=== PATIENT | female | born 1945 | race Caucasian/White ===

== ENCOUNTER 2017-07-14 17:37 | Emergency (ER) | payer MEDICARE, OTHER ==
[~2017-07-14] VITALS: Ht 174 cm; Wt 65.1 kg
[2017-07-14 17:45] VITALS: BP 135/63; PULSE 92; RESP 16; TEMP 97.7; O2SAT 100
[2017-07-14] MEDS ORDERED: XANA1TAB2 PO (18:19)
[2017-07-14] MEDS ORDERED: METH2.5T PO (18:19)
[2017-07-14] MEDS ORDERED: TRAM50TA PO (18:19)
[2017-07-14] MEDS ORDERED: ATOR20TA15 PO (18:19)
[2017-07-14] MEDS ORDERED: ZOLO100T PO (18:19)
[2017-07-14] MEDS ORDERED: AMLO10TA2 PO (18:19)
--- NOTE | 2017-07-14 18:28 | PD ---
HPI Chief Complaint: Injury Time Seen by Provider: 18:06 Travel History International Travel<30 days: No Contact w/Intl Traveler<30days: No Traveled to known affect area: No History of Present Illness HPI Patient 71-year-old female presents emergency department for evaluation of left wrist pain after a slip and fall on the wet pavement today, patient denies any other injury states she had a fall on outstretched hand. Denies any head injury neck injury back injury chest injury abdomen and her other joint injury. Denies a history of loss of consciousness. Feels well otherwise, took 2 tramadol prior to arrival and her pain is better. PFSH Past Medical History Asthma: Yes (osteo) Depression: Yes Cardiovascular Problems: Yes (htn, high chol on meds) High Cholesterol: Yes Diminished Hearing: No Tetanus Vaccination: > 5 Years Influenza Vaccination: No ?: Not Past Surgical History Appendectomy: Yes Eye Surgery: Yes (bilat cataracts ) Social History Alcohol Use: No Tobacco Use: Yes (7-8 cigs ) Substance Use: No Allergies-Medications (Allergen,Severity, Reaction): Coded Allergies: acetaminophen (Verified Allergy, Mild, rash, 07/14/17) Reported Meds & Prescriptions Reported Meds & Active Scripts Active Reported Tramadol (Tramadol HCl) 50 Mg Tab 50 Mg PO TID PRN Xanax (Alprazolam) 1 Mg Tab 1 Mg PO HS PRN Methotrexate 2.5 Mg Tab 2.5 Mg PO BID Zoloft (Sertraline HCl) 100 Mg Tab 100 Mg PO DAILY Atorvastatin (Atorvastatin Calcium) 20 Mg Tab 20 Mg PO HS Amlodipine (Amlodipine Besylate) 10 Mg Tab 10 Mg PO DAILY Review of Systems Except as stated in HPI: all other systems reviewed are Neg Physical Exam Narrative GENERAL: Well-nourished, well-developed patient. SKIN: Focused skin assessment warm/dry. HEAD: Normocephalic. EYES: No scleral icterus. No injection or drainage. NECK: Supple, trachea midline. No JVD or lymphadenopathy. CARDIOVASCULAR: Regular rate and rhythm without murmurs, gallops, or rubs. RESPIRATORY: Breath sounds equal bilaterally. No accessory muscle use. GASTROINTESTINAL: Abdomen soft, non-tender, nondistended. MUSCULOSKELETAL: No cyanosis, or edema. No midline CT or L-spine tenderness, no tenderness at the left elbow, there is obvious deformity of the left wrist with volar displacement. Pulses motor and sensory intact distally in all 4 extremities, cap refill brisk in all 5 digits, all tendon motions are intact and the MCP PIP and DIP joints, remainder the extremities are atraumatic, compartments are soft BACK: Nontender without obvious deformity. No CVA tenderness. Data Data Last Documented VS Vital Signs Date Time Temp Pulse Resp B/P (MAP) Pulse Ox O2 Delivery O2 Flow Rate FiO2 07/14/17 17:45 97.7 92 16 135/63 (87) 100 Orders Orders Wrist, Complete ([id number]) (07/14/17 ) Lidocaine 1% Inj (Xylocaine 1% Inj) (07/14/17 19:15) Wrist, Complete ([id number]) (07/14/17 ) Splint Or Brace Apply/Monitor (07/14/17 19:33) Ed Discharge Order (07/14/17 19:53) Fiberglass Sugartong Sp Ad Arm (07/14/17 ) Sling Cradle Arm (07/14/17 ) MDM Medical Decision Making Medical Screen Exam Complete: Yes Emergency Medical Condition: Yes Differential Diagnosis Wrist fracture, restraint, wrist sprain, neck injury excluded by Nexus criteria. Narrative Course Patient room to the emergency department, x-ray confirms volar angulated and displaced distal radius fracture which is comminuted and intra-articular, there is also an ulnar styloid fracture which is nondisplaced on the left side. Patient underwent hematoma block of the left wrist and partial reduction of the angulation of the fracture. Discussed with the patient that she will need to follow-up with her orthopedist and probably need operative intervention in the near his future. She would like to fly home to [place] and follow-up with an orthopedic surgeon there, I recommended that she follow-up within the next week. A splint was applied, pulse motor and sensory were confirmed after the reduction Procedures Procedure Narrative ORTHOPEDIC REDUCTION: After discussion with the patient the risk benefits competitions alternatives the patient underwent hematoma block with 1% lidocaine plain to a total of 5 cc, using standard traction countertraction with some ulnar deviation of the wrist the patient was partially reduced. Pulse motor and sensory confirmed after the reduction. Patient tolerated the procedure quite well. Diagnosis Primary Impression: Distal radius fracture, left Qualified Codes: S52.502A - Unspecified fracture of the lower end of left radius, initial encounter for closed fracture Additional Impression: Fracture of ulnar styloid Qualified Codes: S52.615A - Nondisplaced fracture of left ulna styloid process , initial encounter for closed fracture Patient Instructions: General Instructions, Splint Care (DC) Additional Instructions: Follow up with an orthopedic surgeon as soon as possible when you return home. You may require surgery. Disposition: 01 DISCHARGE HOME Condition: Stable Brian Singletary MD July 14, 2017 18:28
--- NOTE | 2017-07-14 18:58 | RADRPT ---
EXAM DATE: 07/14/2017 6:51 PM EDT AGE/SEX: 71 years / Female INDICATIONS: Overall left wrist pain after slip and fall. CLINICAL DATA: This is the patient's initial encounter. Patient reports that signs and symptoms have been present for 1 day and indicates a pain score of 5/10. MEDICAL/SURGICAL HISTORY: None. . Left shoulder replacement. COMPARISON: None. FINDINGS: 3 views of the left wrist reveal an acute comminuted fracture involving the distal radial metaphysis with intra-articular extension to the radiocarpal joint. There is 30 degrees of angulation with apex towards the palmar surface. A nondisplaced ulnar styloid fracture noted. Diffuse osteopenia observed. Soft tissue swelling noted. No radiopaque foreign bodies. 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 CONCLUSION: 1. Acute comminuted fracture involving the distal radius with intra-articular extension and angul ation. 2. Nondisplaced ulnar styloid fracture. 3. Osteopenia. Electronically signed by: Nayan Vazquez MD 07/14/2017 6:56 PM EDT
[2017-07-14] MEDS ORDERED: LIDOCAINE HCL 1% 20 ML VIAL INFIL ONE (19:15)
--- NOTE | 2017-07-14 20:02 | RADRPT ---
EXAM DATE: 07/14/2017 7:50 PM EDT AGE/SEX: 71 years / Female INDICATIONS: Post reduction left wrist. CLINICAL DATA: This is the patient's subsequent encounter. Patient reports that signs and symptoms h ave been present for 1 day and indicates a pain score of 9/10. MEDICAL/SURGICAL HISTORY: . Left shoulder replacement. None. COMPARISON: None. FINDINGS: 3 views of the left wrist were performed with splint material in place. There is been some reduction in the angulation now measuring 15 to 20 degrees as opposed to 30 degrees. Comminuted radial fracture again noted. Nondisplaced ulnar styloid fracture noted.. CONCLUSION: Some reduction in the angulation. 15 to 20 degrees of angulation remains. Electronically signed by: Nayan Vazquez MD 07/14/2017 8:01 PM EDT
== END 2017-07-14 20:07 | disposition home or self-care (01) ==
LOC: PHED 17:37 → PHEFT 20:07
DX: S52.502A Unspecified fracture of the lower end of left radius, initial encounter for closed fracture (principal); S52.615A Nondisplaced fracture of left ulna styloid process, initial encounter for closed fracture; W01.0XXA Fall on same level from slipping, tripping and stumbling without subsequent striking against object, initial encounter; F32.9 Major depressive disorder, single episode, unspecified; I10 Essential (primary) hypertension; E78.00 Pure hypercholesterolemia, unspecified; F17.210 Nicotine dependence, cigarettes, uncomplicated
CPT/HCPCS: 25565; 73110